=== PATIENT | male | born 1955 | race African-American/Black ===

== ENCOUNTER 2021-10-03 18:48 | Emergency (ER) | payer SELFPAY ==
[~2021-10-03] VITALS: Ht 177.8 cm; Wt 110.0 kg
[2021-10-03 18:52] VITALS: BP 158/100
[2021-10-03] MEDS ORDERED: SODIUM CHLORIDE 0.9% 1,000 ML IV ONE (20:15)
== END 2021-10-03 23:00 | disposition left against medical advice (07) ==
LOC: ER 18:48
DX: T40.1X1A Poisoning by heroin, accidental (unintentional), initial encounter (principal); X58.XXXA Exposure to other specified factors, initial encounter
CPT/HCPCS: 99283; J7030